=== PATIENT | female | born 1980 | race Caucasian/White ===

== ENCOUNTER → 2025-03-30 | Outpatient (REF) | LOC: M LAB 14:58 | PROVIDERS: ATTEND Family Medicine | DX: Z01.84 Encounter for antibody response examination (principal) ==

== ENCOUNTER → 2025-03-31 | Outpatient (REF) | LOC: M LAB 13:12 | PROVIDERS: ATTEND Family Medicine | DX: Z02.89 Encounter for other administrative examinations (principal) ==

== ENCOUNTER → 2025-04-05 | Outpatient (REF) | LOC: M RAD 16:50 | PROVIDERS: ATTEND Family Medicine | DX: Z02.1 Encounter for pre-employment examination (principal) ==